=== PATIENT | male | born 1955 | race Caucasian/White ===

== ENCOUNTER 2022-05-07 23:12 | Emergency (ER) | payer OTHER, MEDICARE ==
[2022-05-07] MEDS ORDERED: EPINEPHrine 1:10,000 1 MG/10 ML Syringe ONE (23:16)
== END 2022-05-07 23:22 | disposition expired ==
LOC: VM.ED 23:12
DX: I46.9 Cardiac arrest, cause unspecified (principal); I42.0 Dilated cardiomyopathy; I25.5 Ischemic cardiomyopathy; I11.0 Hypertensive heart disease with heart failure; I50.9 Heart failure, unspecified; I25.10 Atherosclerotic heart disease of native coronary artery without angina pectoris; I25.2 Old myocardial infarction; E11.9 Type 2 diabetes mellitus without complications
CPT/HCPCS: 31500; 92950; 99285-25; J0171